=== PATIENT | male | born 1975 | race Two or more races ===

== ENCOUNTER → 2021-07-16 12:54 | Outpatient (BNVA) | payer OTHER, SELFPAY | PROVIDERS: PCP Internal Medicine; Visit Provider Hospitalist | DX: D86.9 Sarcoidosis, unspecified (principal); R91.8 Other nonspecific abnormal finding of lung field; R59.1 Generalized enlarged lymph nodes; R05 Cough | CPT/HCPCS: 99202 ==

== ENCOUNTER 2021-09-03 08:58 | Outpatient (REF) | payer OTHER, SELFPAY ==
--- NOTE | 2021-09-03 17:39 | PFT_ITS ---
INDICATION: Sarcoidosis. SPIROMETRY: FEV1 to FVC 87% with an FEV1 of 4.14 L, which is 94% predicted and an FVC of 4.76 L, which is 86% predicted. No significant response to bronchodilators noted. Maximum voluntary ventilation 98% predicted. LUNG VOLUMES: Total lung capacity 90% predicted. DIFFUSION CAPACITY: DLCO 102% predicted. COMPARISONS: None. INTERPRETATION: No obstructive nor restrictive ventilatory defects identified. No significant response to bronchodilators noted. Normal lung volumes except for decrease in the expiratory reserve volume secondary to an elevated BMI. Normal diffusion capacity. Clinical correlation warranted. Mahesh Timmons MD MR/MODL / [id number]
== END 2021-09-03 08:59 | disposition home or self-care (01) ==
LOC: HO.RESP 08:58
PROVIDERS: PCP Internal Medicine; Visit Provider Hospitalist
DX: D86.9 Sarcoidosis, unspecified (principal); R05.9 Cough, unspecified; U07.1 COVID-19
CPT/HCPCS: 94060; 94727; 94729; 99212